=== PATIENT | male | born 1975 | race Hispanic/Latino ===

== ENCOUNTER 2018-05-31 05:53 | Day surgery (SDC) | payer BC ==
[2018-05-28 11:11] VITALS: BP 140/82
[~2018-05-31] VITALS: Ht 180.3 cm; Wt 145.2 kg
[2018-05-31] VITALS (11 sets, daily range): BP systolic 114–146; BP diastolic 75–94
[~2018-05-31 05:53] MED LIST: CLINDAMYCIN 900 MG/D5% WATER 50 ML IV SCH; GABA-531 PO
[2018-05-31] MEDS ORDERED: LACTATED RINGERS 1000ML 1,000 ML IV ONE (06:16)
[2018-05-31] MEDS ORDERED: CLINDAMYCIN 900 MG/D5% WATER 50 ML IV ONE (06:16)
[2018-05-31] MEDS ORDERED: LIDOCAINE HCL MDV 0.5% 50ML VIAL IJ ONE (07:16)
[2018-05-31] MEDS ORDERED: MIDAZOLAM HCL 1 MG/ML 2ML VIAL ONE ×2 (07:41→08:08)
[2018-05-31] MEDS ORDERED: LIDOCAINE HCL 1% MDV 50ML VIAL ONE (08:05)
[2018-05-31] MEDS ORDERED: FENTANYL CITRATE PF 50 MCG/1 ML 5ML AMP IV ONE (08:05)
== END 2018-05-31 10:04 | disposition home or self-care (01) ==
LOC: DAH 05:53
PROVIDERS: ATTEND Neurological Surgery
DX: G56.01 Carpal tunnel syndrome, right upper limb (principal)
CPT/HCPCS: 64721; J2250 ×2; J3010; J3490 ×3; J7120

== ENCOUNTER 2019-06-06 06:05 | Day surgery (SDC) | payer BC ==
[2019-06-03 09:41] VITALS: BP 155/94
[2019-06-03 09:43] LABS: BASOPHILS % (AUTO) 0.9 % (0.0-5.0); EOSINOPHILS % (AUTO) 4.4 % (0.0-8.0); HEMATOCRIT 44.5 % (42-54); LYMPHOCYTES % (AUTO) 17.1 % (21.0-51.0); MEAN CORPUSCULAR HEMOGLOBIN 31.1 pg (27.0-33.0); MEAN CORPUSCULAR HGB CONC 34.9 g/dL (32.0-36.0); MONOCYTES % (AUTO) 7.7 % (3.0-13.0); NEUTROPHILS % (AUTO) 69.9 % (40.0-77.0); PLATELET COUNT (AUTO) 176 K/uL (130-400); RED CELL DISTRIBUTION WIDTH 13.1 % (11.0-15.5); WHITE BLOOD COUNT (AUTO) 7.3 K/uL (4.8-10.8)
[2019-06-03 09:49] LABS: POTASSIUM 3.9 mmol/L (3.5-5.1)
[~2019-06-06] VITALS: Ht 180.3 cm; Wt 147.1 kg
[2019-06-06] VITALS (12 sets, daily range): BP systolic 106–137; BP diastolic 53–83
[~2019-06-06 06:05] MED LIST changes: -CLINDAMYCIN 900 MG/D5% WATER 50 ML IV SCH; +CLINDAMYCIN IN 0.9 % SOD CHLOR 50 ML IV SCH; -GABA-531 PO; +OLME20TA22 PO
[2019-06-06] MEDS ORDERED: LACTATED RINGERS 1000ML 1,000 ML IV ONE (06:56)
[2019-06-06] MEDS ORDERED: CLINDAMYCIN 900 MG/D5% WATER 50 ML IV ONE (06:56)
--- NOTE | 2019-06-06 07:29 | NUR ---
POTENTIAL FOR INFECTION: WIPED LEFT HAND / LOWER ARM WITH JOY: 2% CHLORHEXIDINE GLUCONATE CLOTH PATIENTS PRE-OP SKIN PREP PER [place] [facility].
[2019-06-06] MEDS ORDERED: LIDOCAINE HCL-MPF 1% 5ML AMP IJ ONE (08:31)
[2019-06-06] MEDS ORDERED: FENTANYL CITRATE PF 50 MCG/1 ML 2ML VIAL ONE (08:32)
[2019-06-06] MEDS ORDERED: PROPOFOL 10 MG/ML 20ML VIAL IV ONE ×2 (08:32→09:11)
[2019-06-06] MEDS ORDERED: MIDAZOLAM HCL 1 MG/ML 2ML VIAL ONE ×2 (08:32→08:53)
[2019-06-06] MEDS ORDERED: LIDOCAINE PF 2% 5ML ABBOJECT ONE (08:32)
[2019-06-06] MEDS ORDERED: KETOROLAC TROMETHAMINE 30MG/ML ONE (08:37)
[2019-06-06] MEDS ORDERED: LIDOCAINE HCL MDV 0.5% 50ML VIAL IJ ONE (08:37)
[2019-06-06] MEDS ORDERED: DEXAMETHASONE SOD PHOSPHATE 10MG/ML 1ML VIAL ONE (08:59)
== END 2019-06-06 10:55 | disposition home or self-care (01) ==
LOC: DAH 06:05
PROVIDERS: ATTEND Neurological Surgery
DX: G56.02 Carpal tunnel syndrome, left upper limb (principal); I10 Essential (primary) hypertension; E66.01 Morbid (severe) obesity due to excess calories; K21.9 Gastro-esophageal reflux disease without esophagitis; Z88.0 Allergy status to penicillin; Z68.42 Body mass index [BMI] 45.0-49.9, adult; Z79.899 Other long term (current) drug therapy; Z82.49 Family history of ischemic heart disease and other diseases of the circulatory system; Z83.3 Family history of diabetes mellitus; Z82.5 Family history of asthma and other chronic lower respiratory diseases
CPT/HCPCS: 36415; 64721; 80051; 85025; A4215 ×2; A4221; A4222; A4223 ×2; A4663; A5120; A6260; J1100; J1885; J2001; J2250 ×2; J2704 ×2; J3010; J3490 ×2; J7120